=== PATIENT | female | born 1980 | race American Indian/Alaskan Native ===

== ENCOUNTER 2018-12-26 15:28 | Emergency (ER) | payer BC ==
[2018-12-26 16:08] LABS: #Basophils 0.1 thou/uL (0.0-0.2); #Eosinphils 0.1 thou/uL (0.0-0.7); #Lymphocytes 1.5 thou/uL (1.20-3.40); #Monocytes 0.5 thou/uL (0.11-0.59); %Basophils 1.1 % (0.0-1.0); %Eosinophils 1.9 % (0.0-10.0); %Lymphocytes 23.9 % (21.0-51.0); %Monocytes 8.6 % (0.0-10.0); %Neutrophils 64.6 % (42.0-75.0); Hemoglobin 12.2 g/dL (12.0-16.0); Mean Corpuscular HGB CONC 33.8 g/dL (32.0-36.0); Mean Corpuscular Hemoglobin 31.8 pg (27.0-31.0); Mean Corpuscular Volume 93.9 fL (78.0-98.0); Platelet Count 163 thou/uL (130-400); RBC Distribution Width 11.7 % (11.5-14.5); Red Blood Cell (RBC) Count 3.84 mill/uL (4.20-5.40); White Blood Cell (WBC) Count 6.2 thou/uL (4.8-10.8)
[2018-12-26 16:27] LABS: ALT (SGPT) 40 U/L (8-55); AST (SGOT) 76 U/L (5-34); Albumin 4.3 g/dL (3.5-5.0); Alkaline Phosphatase 69 U/L (40-150); Anion Gap 14 mmol/L (10-20); BUN (Urea Nitrogen) 13 mg/dL (7.0-18.7); Bilirubin, Total 0.5 mg/dL (0.2-1.2); Calc. Creatinine Clearance 0 mL/min (70-130); Calcium 9.4 mg/dL (7.8-10.44); Carbon Dioxide 22 mmol/L (22-29); Chloride 107 mmol/L (98-107); Estimated GFR-MDRD 76; Globulin 2.6 g/dL (2.4-3.5); Glucose 95 mg/dL (70-105); Protein, Total 6.9 g/dL (6.0-8.3); Sodium 139 mmol/L (136-145)
--- NOTE | 2018-12-26 16:50 | RAD ---
CHEST TWO VIEW: 12/26/18 HISTORY: Rapid heart rate. COMPARISON: None. FINDINGS: Mild S-shaped scoliosis. Lungs are clear. No pneumothorax. No effusion. The cardiac silhouette and me diastinal contours are within normal limits. IMPRESSION: No acute intrathoracic abnormality. POS: HOME
[2018-12-26] MEDS ORDERED: hydrALAZINE 20 MG/ML VIAL ONE (17:18)
[2018-12-26] MEDS ORDERED: hydrOXYzine 25 MG TAB ONE (17:19)
== END 2018-12-26 18:25 | disposition home or self-care (01) ==
LOC: ERS 15:28
DX: R00.2 Palpitations (principal)
CPT/HCPCS: 36415; 71046; 80053; 84484; 85025; 85379; 93005; 94760; J0360